=== PATIENT | male | born 1980 | race Caucasian/White ===

== ENCOUNTER 2017-11-02 10:12 | Emergency (ER) | payer OTHER ==
[~2017-11-02] VITALS: Ht 177.8 cm; Wt 138.0 kg
[2017-11-02 10:14] VITALS: TEMP 36.9; Ht 177.8 cm; Wt 138.0 kg
[2017-11-02] MEDS ORDERED: BUPR150T47 PO (10:32)
[2017-11-02] MEDS ORDERED: CLIN300C2 PO (10:32)
[2017-11-02] MEDS ORDERED: LISI-461 PO (10:32)
[2017-11-02] MEDS ORDERED: CLINDAMYCIN 600 MG/54 ML D5W IV ONE (11:15)
[2017-11-02 11:43] LABS: BASO % 0.6 %; BASO ABS # 0.04 K/uL (0-0.2); EOS % 1.9 %; EOS ABS # 0.13 K/uL (0-0.5); HEMATOCRIT 45.4 % (42-52); HEMOGLOBIN 15.5 g/dL (14.0-18.0); IG# 0.02 K/uL (0.00-0.02); LYMPH % 23.2 %; LYMPH ABS # 1.62 K/uL (1.2-3.4); MEAN CELL VOLUME 90.6 fL (80-100); MEAN CORPUSCULAR HEMOGLOBIN 30.9 pg (25-34); MEAN CORPUSCULAR HGB CONC 34.1 g/dl (32-36); MEAN PLATELET VOLUME 8.6 fL (7.4-10.4); MONO % 9.2 %; MONO ABS # 0.64 K/uL (0.11-0.59); NEUT % 64.8 %; NEUT ABS # 4.52 K/uL (1.4-6.5); PLATELET COUNT 167 K/uL (130-400); RED CELL DISTRIBUTION WIDTH CV 13.6 % (11.5-14.5); RED CELL DISTRIBUTION WIDTH SD 44.7 fL (36.4-46.3); WHITE BLOOD COUNT 6.97 K/uL (4.8-10.8)
[2017-11-02 12:00] VITALS: BP 137/63; PULSE 76; O2SAT 97
[2017-11-02 12:00] LABS: CALCIUM 10.1 mg/dl (8.5-10.1); CREATININE 0.81 mg/dl (0.60-1.40)
--- NOTE | 2017-11-02 12:19 | EMERGENCY ROOM VISIT NOTE ---
History First contact with patient: 11:00 Chief Complaint: INFECTION Stated Complaint: CELLULITIS WORSENING Nursing Triage Summary: has cellulitis on right tate has been on clinda since sun and feels like it is getting worse History of Present Illness The patient is a 37 year old male who presents to the Emergency Room with complaints of right lower leg cellulitis. The patient states that his leg started getting red on Sunday afternoon. He states that on Sunday he was getting worse [place] [facility] [employer] [place]. The patient states that time he did have some streaking up his inner thigh. He states the redness is better but now he has some pain in the groin region. He was laced on clindamycin. The patient did not receive any IV antibiotics or laboratory workup. The patient denies any current fevers. Review of Systems 10 system review was performed and was negative unless stated otherwise history of present illness. Past Medical/Surgical History Hypertension, asthma, Social History Smoking Status: Current Every Day Smoker Smokeless Tobacco Use: No Alcohol Use: occasionally Drug Use: none Marital Status: Housing Status: lives with family Occupation Status: employed Current/Historical Medications Scheduled Bupropion (Zyban), 150 MG PO BID Clindamycin Hcl (Cleocin), 300 MG PO QID Lisinopril (Zestril), 10 MG PO DAILY Physical Exam Vital Signs Date Time Temp Pulse Resp B/P (MAP) Pulse Ox O2 Delivery O2 Flow Rate FiO2 11/02/17 10:14 36.9 90 18 152/94 95 Physical Exam GENERAL: 37-year-old white male appears in no acute distress. MENTAL Status: Alert and oriented 3. LUNGS: Clear auscultation without wheezes rales or rhonchi. CARDIAC: Regular rate and rhythm without murmur. Pulses is full and equal throughout. RIGHT LEG: The patient has a few scabbed lesions on the anterior aspect of the right lower leg. He has some surrounding erythema in that area there is a small amount of streaking just on the medial aspect of the knee but it does not go above the knee. There are marked lines that it was up higher earlier but that has resolved. The patient has right inguinal lymphadenopathy which is tender to palpation. Medical Decision & Procedures Laboratory Results 11/02/17 11:30 Red Blood Count 5.01, Mean Corpuscular Volume 90.6, Mean Corpuscular Hemoglobin 30.9, Mean Corpuscular Hemoglobin Concent 34.1, Mean Platelet Volume 8.6, Neutrophils (%) (Auto) 64.8, Lymphocytes (%) (Auto) 23.2, Monocytes (%) (Auto) 9.2, Eosinophils (%) (Auto) 1.9, Basophils (%) (Auto) 0.6, Neutrophils # (Auto) 4.52, Lymphocytes # (Auto) 1.62, Monocytes # (Auto) 0.64, Eosinophils # (Auto) 0.13, Basophils # (Auto) 0.04 11/02/17 11:30 Test 11/02/17 11:30 White Blood Count 6.97 K/uL (4.8-10.8) Red Blood Count 5.01 M/uL (4.7-6.1) Hemoglobin 15.5 g/dL (14.0-18.0) Hematocrit 45.4 % (42-52) Mean Corpuscular Volume 90.6 fL (80-100) Mean Corpuscular Hemoglobin 30.9 pg (25-34) Mean Corpuscular Hemoglobin Concent 34.1 g/dl (32-36) Platelet Count 167 K/uL (130-400) Mean Platelet Volume 8.6 fL (7.4-10.4) Neutrophils (%) (Auto) 64.8 % Lymphocytes (%) (Auto) 23.2 % Monocytes (%) (Auto) 9.2 % Eosinophils (%) (Auto) 1.9 % Basophils (%) (Auto) 0.6 % Neutrophils # (Auto) 4.52 K/uL (1.4-6.5) Lymphocytes # (Auto) 1.62 K/uL (1.2-3.4) Monocytes # (Auto) 0.64 K/uL (0.11-0.59) Eosinophils # (Auto) 0.13 K/uL (0-0.5) Basophils # (Auto) 0.04 K/uL (0-0.2) RDW Standard Deviation 44.7 fL (36.4-46.3) RDW Coefficient of Variation 13.6 % (11.5-14.5) Immature Granulocyte % (Auto) 0.3 % Immature Granulocyte # (Auto) 0.02 K/uL (0.00-0.02) Anion Gap 3.0 mmol/L (3-11) Est Creatinine Clear Calc Drug Dose 171.5 ml/min Estimated GFR () 129.8 Estimated GFR (Non- 112.0 BUN/Creatinine Ratio 28.6 (10-20) Calcium Level 10.1 mg/dl (8.5-10.1) Medications Administered Medications (Trade) Dose Ordered Sig/Kevin Route Start Time Stop Time Status Last Admin Dose Admin Clindamycin Phosphate (Cleocin 600mg/ 54ml D5W) 600 mg ONE ONCE IV 11/02/17 11:15 11/02/17 11:16 DC 11/02/17 11:58 600 MG ED Course The patient was evaluated. The patient has not been seen in our ER in the past. IV access was obtained. CBC and differential and renal profile was ordered. The patient was given clindamycin 600 mg IV. The patient was reevaluated. Labs are reviewed. Patient's white count and renal profile were normal. The patient was informed of the findings and discharged home in stable condition. Medical Decision The patient was already diagnosed with cellulitis and thought that his symptoms were worsening due to the pain in his lymph nodes. I discussed with the patient that this was a good thing that his lymph nodes were swollen to help fight off infection. The redness of his leg actually was improving. Since the patient did not have any baseline labs as well as obtained as well as a dose of IV antibiotics. He will be given clindamycin since he has already started clindamycin. Medication Reconcilliation Current Medication List: was personally reviewed by me Blood Pressure Screening Patient's blood pressure: Elevated blood pressure Blood pressure disposition: Elevated BP felt to be situational Impression Primary Impression: Cellulitis of right leg Departure Information Dispostion Home / Self-Care Condition GOOD Referrals No Doctor, Assigned (PCP) Forms HOME CARE DOCUMENTATION FORM, IMPORTANT VISIT INFORMATION, WORK / SCHOOL INSTRUCTIONS Patient Instructions Cellulitis - [facility], My [facility] Additional Instructions Take the clindamycin at midnight tonight and then resume normal dosing tomorrow. Tylenol and/or ibuprofen as needed for pain. If symptoms should worsen, return to ER for further IV antibiotics. If you have a family doctor recommend recheck on Sunday.
== END 2017-11-02 12:30 | disposition home or self-care (01) ==
LOC: C.EDB 10:14 → C.EDC 12:30
DX: L03.115 Cellulitis of right lower limb (principal); I10 Essential (primary) hypertension; J45.909 Unspecified asthma, uncomplicated; F17.200 Nicotine dependence, unspecified, uncomplicated